=== PATIENT | male | born 1990 | race Asian ===

== ENCOUNTER 2021-08-31 10:16 | Emergency (ER) | payer SELFPAY ==
[~2021-08-31] VITALS: Ht 170.2 cm; Wt 110.8 kg
[2021-08-31 10:22] VITALS: BP 146/82
--- NOTE | 2021-08-31 10:31 | NUR ---
Juan Jose howard in ED - 08/31/21 at 1031 by [email or web address] Patient being evaluated by DR VANESSA at bedside.
--- NOTE | 2021-08-31 10:31 | NUR ---
Patient being evaluated by DR VANESSA at TRIAGE ROOM.
--- NOTE | 2021-08-31 10:32 | NUR ---
BIB SELF C/O DIARRHEA , 12/29 LLQ ABD PAIN X LAST NIGHT. PMH: HEMORRHOIDS Addendum: 08/31/21 at 1035 by [email or web address] RECTAL PAIN
[2021-08-31] MEDS ORDERED: PHEN28OI6 TP (10:49)
[2021-08-31] MEDS ORDERED: IBUP-2213 PO (10:49)
[2021-08-31] MEDS ORDERED: DOCU-299 PO (10:49)
[2021-08-31 10:50] VITALS: BP 146/82
--- NOTE | 2021-08-31 10:50 | NUR ---
Patient discharged with v/s stable. Written and verbal after care instructions given and explained. Patient alert, oriented and verbalized understanding of instructions. Ambulatory with steady gait. All questions addressed prior to discharge. ID band removed. Patient advised to follow up with PMD. Rx of MOTRIN, COLACE & PREPARATION H OINTMENT given. Patient educated on indication of medication including possible reaction and side effects. Opportunity to ask questions provided and answered.
== END 2021-08-31 10:50 | disposition home or self-care (01) ==
LOC: MED 10:16
DX: K64.4 Residual hemorrhoidal skin tags (principal); R19.7 Diarrhea, unspecified
CPT/HCPCS: 99282